=== PATIENT | male | born 1985 | race Caucasian/White ===

== ENCOUNTER 2023-09-26 00:27 | Emergency (ER) | payer SELFPAY ==
[2023-09-26 00:28] VITALS: BP 128/60; PULSE 61; RESP 20; TEMP 36.4; O2SAT 100; BMI 22.4
--- NOTE | 2023-09-26 00:33 | ECG_ITS ---
[facility] Test Date: 2023-09-26 Pat Name: Harley Gonzalez Department: Room: Gender: Male Continuous Process Machine Operator: : 1985 Requested By: Ahmet Maza Order Number: [id number] Flores MD: Kristofer Saha M.D. Measurements Intervals [place] Rate: 65 P: 56 FL: 190 QRS: 61 QRSD: 114 T: 69 QT: 388 QTc: 406 Interpretive Statements SINUS RHYTHM POSSIBLE RIGHT VENTRICULAR CONDUCTION DELAY [RSR (QR) IN V1/V2] Compared to ECG 08/16/2017 13:18:27 ST (T wave) deviation no longer present Electronically Signed On 09-26-2023 10:06:48 GLUE JOINTER OPERATOR by Kristofer Saha M.D. [id number] f
--- NOTE | 2023-09-26 00:54 | XRR_ITS ---
PROCEDURE INFORMATION: Exam: XR Chest Exam date and time: 09/26/2023 1:07 AM Age: 37 years old Clinical indication: Chest wall pain; Additional info: Chest pain TECHNIQUE: Imaging protocol: Radiologic exam of the chest. Views: 2 views. COMPARISON: CR XR chest 1V [id number] 08/16/2017 1:24 PM FINDINGS: Lungs: Unremarkable. No consolidation. Pleural spaces: Unremarkable. No pleural effusion. No pneumothorax. Heart/Mediastinum: Unremarkable. No cardiomegaly. Bones/joints: Unremarkable. XR/XR chest 2V* [id number] IMPRESSION: No acute cardiopulmonary findings.
--- NOTE | 2023-09-26 00:58 | ED_ITS ---
Documented by User: PRINCE Donnelly 09/26/23 01:03 HPI - Chest Pain 2 General: Chief Complaint: Chest Pain Stated Complaint: CP Time Seen by Provider: 09/26/23 00:45 Source: patient Mode of arrival: ambulatory Limitations: no limitations History of Present Illness: Patient is a 37-year-old male with no documented past medical history who presents to the emergency department via EMS complaining of chest pain onset 2130 tonight. Patient states he was sitting in his recliner when he noted sudden onset of epigastric squeezing chest pain associated with some shortness of breath, nausea, lightheadedness, and palpitations. Patient denies any personal cardiac history, but states he does not have a primary care provider. He does note that he takes his blood pressure at home because of a family history of low blood pressure, and states that it has been running low recently. He also notes that he has been dealing with some upper respiratory symptoms recently. When asked about history of anxiety, he states that he knows he has anxiety but has not been treated for it. His pain is improved now, stating it is a 2/10 and was initially 9/10. He denies any history of stomach ulcers or chronic NSAID use. He states he is a former smoker. He reports no specific exacerbating or alleviating factors. He does comment that he has had the pain before. He denies any other symptoms at this time and has no history of heart attacks or strokes. MD complaint: chest pain Onset (ago): hour(s) Prior episodes: Yes Onset: during rest Pain location: epigastric Pain radiation: none Severity: mild Pain scale (0-10): 2 (Initially a 9) Quality: other (Squeezing) Relieving factors: nothing Exacerbating factors: nothing Associated symptoms: Reports dyspnea, nausea and palpitations; Deny abdominal pain, diaphoresis, fever(s) or vomiting Review of Systems 2 General: Reports: 10 or more systems reviewed and unremarkable except in HPI and below Const: Denies: fever(s), chills, fatigue or diaphoresis Eyes: Denies: change in vision ENMT: Denies: throat pain, ear or mastoid pain or nasal discharge Card: Reports: chest pain, palpitations and lightheadedness; Denies: swelling of feet/ankles Resp: Reports: dyspnea; Denies: productive cough or wheezing GI: Reports: nausea; Denies: abdominal pain, vomiting, diarrhea or constipation : Denies: flank pain, difficulty urinating, dysuria or urinary frequency Musc: Denies: neck pain, back pain or joint pain Skin/Breast: Denies: rash Neuro: Denies: headache(s), numbness in extremities or weakness in extremities Physical Exam 2 Const: COMMON NORMALS: no acute distress, patient oriented x3 and no limitations GENERAL APPEARANCE: cooperative, comfortable and well developed ORIENTATION/CONSCIOUSNESS: Yes awake, Yes oriented to person, Yes oriented to place and Yes oriented to time HENMT: COMMON NORMALS: normocephalic, atraumatic and hearing grossly normal bilaterally HEAD & SCALP: normocephalic and atraumatic Eye: COMMON NORMALS: Equal, round and reactive pupils present, EOMs intact bilaterally and conjunctivae normal CONJUNCTIVA: Yes conjunctivae normal P UPIL: Yes Equal, round and reactive pupils present Neck/C-Spine: COMMON NORMALS: full ROM, supple and no JVD Chest: COMMONS NORMALS: normal inspection of the chest OTHER: Chest nontender to palpation Resp: COMMON NORMALS: normal respiratory effort, No retractions, No use of accessory muscles and clear to auscultation bilaterally AUSCULTATION: clear to auscultation bilaterally Cardio: COMMON NORMALS: no JVD, regular rate, regular rhythm, S1 normal heart sound present, S2 normal heart sound present, No gallops present (Cardio), No clicks present (Cardio), No murmurs present (Cardio), No rub (Cardio) and Peripheral pulses 2+ throughout RATE: regular rate RHYTHM: regular rhythm HEART SOUNDS: S1 normal heart sound present and S2 normal heart sound present PERIPHERAL PULSES: Peripheral pulses 2+ throughout OTHER: No peripheral edema GI: COMMON NORMALS: Normal to inspection, nondistended, normoactive bowel sounds present, Soft to palpation and non-tender AUSCULTATION: Yes normoactive bowel sounds PALPATION: Yes Soft to palpation RECTAL EXAM: Yes deferred Extremity: COMMON NORMALS: normal to inspection, full ROM and capillary refill normal Neuro: COMMON NORMALS: patient oriented x3, moves all extremities, no focal motor deficits and no sensory deficits noted SENSORIUM/ORIENTATION: Yes oriented to person, Yes oriented to place and Yes oriented to time Psych: COMMON NORMALS: mental status grossly normal and Normal thought process present THOUGHT PROCESS: Normal thought process present Skin: COMMON NORMALS: no rashes or lesions noted GENERAL SKIN EXAM: no rashes or lesions noted Course 2 Vital Signs: Vital signs: Vital Signs Temperature 97.6 F 09/26/23 03:32 Pulse Rate 77 09/26/23 03:32 Respiratory Rate 16 09/26/23 03:32 Blood Pressure 120/60 09/26/23 03:32 Pulse Oximetry 99 09/26/23 03:32 MDM - Chest Pain Lab Data 09/26/23 00:10 09/26/23 00:10 Radiology Impressions Chest X-Ray 09/26/23 00:54 IMPRESSION: No acute cardiopulmonary findings. Laboratory Results WBC 13.23 10^3/uL (3.29-11.43) H 09/26/23 00:10 RBC 4.84 10^6/uL (3.85-5.65) 09/26/23 00:10 Hgb 14.00 g/dL (11.27-16.99) 09/26/23 00:10 Hct 41.9 % (37-53) 09/26/23 00:10 MCV 86.6 fl (82-101) 09/26/23 00:10 MCH 28.9 pg (27-33) 09/26/23 00:10 MCHC 33.4 g/dL (30-55) 09/26/23 00:10 RDW 12.8 % (12.1-15.1) 09/26/23 00:10 Plt Count 287 10^3/cmm (157-399) 09/26/23 00:10 MPV 10.8 fL (7.4-10.4) H 09/26/23 00:10 Neut % (Auto) 82.0 % 09/26/23 00:10 Lymph % (Auto) 13.5 % 09/26/23 00:10 [place] % (Auto) 1.2 % 09/26/23 00:10 Eos % (Auto) 2.5 % 09/26/23 00:10 Baso % (Auto) 0.5 % 09/26/23 00:10 Neut # (Auto) 10.86 10^3/uL (1.8-7.7) H 09/26/23 00:10 Lymph # (Auto) 1.8 10^3/uL (0.8-4.8) 09/26/23 00:10 [place] # (Auto) 0.2 10^3/uL (0.2-0.9) 09/26/23 00:10 Eos # (Auto) 0.3 10^3/uL (0.0-0.8) 09/26/23 00:10 Baso # (Auto) 0.1 10^3/uL (0.0-0.1) 09/26/23 00:10 Nucleated RBC % (auto) 0 % 09/26/23 00:10 Nucleated RBCs # 0.0 /100WBC 09/26/23 00:10 Sodium 137 mmol/L (136-145) 09/26/23 00:10 Potassium 3.3 mmol/L (3.5-5.1) L 09/26/23 00:10 Chloride 97 mmol/L (98-107) L 09/26/23 00:10 Carbon Dioxide 24 mmol/L (22-29) 09/26/23 00:10 Anion Gap 19.3 (5-19) H 09/26/23 00:10 BUN 20 mg/dL (6-20) 09/26/23 00:10 Creatinine 1.2 mg/dL (0.7-1.2) 09/26/23 00:10 GFR Calculation 68.9 mL/min (90-130) L 09/26/23 00:10 Glucose 112 mg/dL (65-115) 09/26/23 00:10 Calculated Osmolality 287 mOsm/kg (285-295) 09/26/23 00:10 Calcium 8.6 mg/dL (8.5-10.5) 09/26/23 00:10 Total Bilirubin 0.5 mg/dL (0.15-1.2) 09/26/23 00:10 AST 258 U/L (0-40) H 09/26/23 00:10 ALT 72 U/L (0-41) H 09/26/23 00:10 Alkaline Phosphatase 113 U/L (40-130) 09/26/23 00:10 Troponin T Baseline < 6 ng/L (0-15) 09/26/23 00:10 Troponin T 120 Minute 6.20 ng/L (0-15) 09/26/23 02:05 Delta Troponin T 0.75919 ABS# (0-10) 09/26/23 02:05 Total Protein 6.6 g/dL (6.6-8.7) 09/26/23 00:10 Albumin 4.0 g/dL (3.5-5.2) 09/26/23 00:10 Globulin 2.6 g/dL (1.3-4.6) 09/26/23 00:10 Lipase 26 U/L (13-60) 09/26/23 00:10 Urine Color Dark yellow (Yellow) 09/26/23 01:25 Urine Appearance Clear (CLEAR) 09/26/23 01:25 Urine pH 5 (5-7) 09/26/23 01:25 Ur Specific [place] 1.020 (1.005-1.030) 09/26/23 01:25 Urine Protein Neg (Negative) 09/26/23 01:25 Urine Glucose (UA) Norm (Normal) 09/26/23 01:25 Urine Ketones Negative (Negative) 09/26/23 01:25 Urine Blood Neg (Negative) 09/26/23 01:25 Urine Nitrate Negative (Negative) 09/26/23 01:25 Urine Bilirubin 1+ (Negative) H 09/26/23 01:25 Urine Urobilinogen 4 mg/dL (Negative) H 09/26/23 01:25 Ur Leukocyte Esterase Negative (Negative) 09/26/23 01:25 Discharge Plan Discharge Patient Disposition: Home Clinical Impression: Atypical chest pain, Elevated liver enzymes Condition: Stable Discharge Orders: Discharge ED (Routine); Ordered 09/26/23 Ordered By: Wild Stroud Patient Instructions: Chest Pain (ED) Activity Restrictions/Additional Instructions: Your cardiac workup came back normal. This is suggestive of noncardiac chest pain. However your liver enzymes come back elevated. This requires further workup. Please follow-up with your family practice physician to have your labs redrawn for further evaluation and treatment. Coding Level of Care Code ED Underground Bolting Machine Operator for Chg Fwd Documented by User: Wild Stroud DO 09/26/23 05:12 HPI - Chest Pain 2 General: Chief Complaint: Chest Pain Stated Complaint: CP Time Seen by Provider: 09/26/23 00:45 Course 2 Vital Signs: Vital signs: Vital Signs Temperature 97.6 F 09/26/23 03:32 Pulse Rate 77 09/26/23 03:32 Respiratory Rate 16 09/26/23 03:32 Blood Pressure 120/60 09/26/23 03:32 Pulse Oximetry 99 09/26/23 03:32 MDM - Chest Pain Medical Decision Making Jean transferred over to [place] at shift change. Labs was reviewed reviewed as well as chest x-ray and EKGs all of which was essentially unremarkable except mildly elevated liver enzymes with AST of 258 and an ALT T of 72 his ALT the patient's chest pain is noncardiac in nature. Patient will be referred back to his PCP for further evaluation and treatment Lab Data 09/26/23 00:10 09/26/23 00:10 Radiology Impressions Chest X-Ray 09/26/23 00:54 IMPRESSION: No acute cardiopulmonary findings. Laboratory Results WBC 13.23 10^3/uL (3.29-11.43) H 09/26/23 00:10 RBC 4.84 10^6/uL (3.85-5.65) 09/26/23 00:10 Hgb 14.00 g/dL (11.27-16.99) 09/26/23 00:10 Hct 41.9 % (37-53) 09/26/23 00:10 MCV 86.6 fl (82-101) 09/26/23 00:10 MCH 28.9 pg (27-33) 09/26/23 00:10 MCHC 33.4 g/dL (30-55) 09/26/23 00:10 RDW 12.8 % (12.1-15.1) 09/26/23 00:10 Plt Count 287 10^3/cmm (157-399) 09/26/23 00:10 MPV 10.8 fL (7.4-10.4) H 09/26/23 00:10 Neut % (Auto) 82.0 % 09/26/23 00:10 Lymph % (Auto) 13.5 % 09/26/23 00:10 [place] % (Auto) 1.2 % 09/26/23 00:10 Eos % (Auto) 2.5 % 09/26/23 00:10 Baso % (Auto) 0.5 % 09/26/23 00:10 Neut # (Auto) 10.86 10^3/uL (1.8-7.7) H 09/26/23 00:10 Lymph # (Auto) 1.8 10^3/uL (0.8-4.8) 09/26/23 00:10 [place] # (Auto) 0.2 10^3/uL (0.2-0.9) 09/26/23 00:10 Eos # (Auto) 0.3 10^3/uL (0.0-0.8) 09/26/23 00:10 Baso # (Auto) 0.1 10^3/uL (0.0-0.1) 09/26/23 00:10 Nucleated RBC % (auto) 0 % 09/26/23 00:10 Nucleated RBCs # 0.0 /100WBC 09/26/23 00:10 Sodium 137 mmol/L (136-145) 09/26/23 00:10 Potassium 3.3 mmol/L (3.5-5.1) L 09/26/23 00:10 Chloride 97 mmol/L (98-107) L 09/26/23 00:10 Carbon Dioxide 24 mmol/L (22-29) 09/26/23 00:10 Anion Gap 19.3 (5-19) H 09/26/23 00:10 BUN 20 mg/dL (6-20) 09/26/23 00:10 Creatinine 1.2 mg/dL (0.7-1.2) 09/26/23 00:10 GFR Calculation 68.9 mL/min (90-130) L 09/26/23 00:10 Glucose 112 mg/dL (65-115) 09/26/23 00:10 Calculated Osmolality 287 mOsm/kg (285-295) 09/26/23 00:10 Calcium 8.6 mg/dL (8.5-10.5) 09/26/23 00:10 Total Bilirubin 0.5 mg/dL (0.15-1.2) 09/26/23 00:10 AST 258 U/L (0-40) H 09/26/23 00:10 ALT 72 U/L (0-41) H 09/26/23 00:10 Alkaline Phosphatase 113 U/L (40-130) 09/26/23 00:10 Troponin T Baseline < 6 ng/L (0-15) 09/26/23 00:10 Troponin T 120 Minute 6.20 ng/L (0-15) 09/26/23 02:05 Delta Troponin T 0.74508 ABS# (0-10) 09/26/23 02:05 Total Protein 6.6 g/dL (6.6-8.7) 09/26/23 00:10 Albumin 4.0 g/dL (3.5-5.2) 09/26/23 00:10 Globulin 2.6 g/dL (1.3-4.6) 09/26/23 00:10 Lipase 26 U/L (13-60) 09/26/23 00:10 Urine Color Dark yellow (Yellow) 09/26/23 01:25 Urine Appearance Clear (CLEAR) 09/26/23 01:25 Urine pH 5 (5-7) 09/26/23 01:25 Ur Specific [place] 1.020 (1.005-1.030) 09/26/23 01:25 Urine Protein Neg (Negative) 09/26/23 01:25 Urine Glucose (UA) Norm (Normal) 09/26/23 01:25 Urine Ketones Negative (Negative) 09/26/23 01:25 Urine Blood Neg (Negative) 09/26/23 01:25 Urine Nitrate Negative (Negative) 09/26/23 01:25 Urine Bilirubin 1+ (Negative) H 09/26/23 01:25 Urine Urobilinogen 4 mg/dL (Negative) H 09/26/23 01:25 Ur Leukocyte Esterase Negative (Negative) 09/26/23 01:25 All radiology interpretation(s) finalized by discharge Discharge Plan Discharge Patient Disposition: Home Clinical Impression: Atypical chest pain, Elevated liver enzymes Condition: Stable Discharge Orders: Discharge ED (Routine); Ordered 09/26/23 Ordered By: Wild Stroud Patient Instructions: Chest Pain (ED) Activity Restrictions/Additional Instructions: Your cardiac workup came back normal. This is suggestive of noncardiac chest pain. However your liver enzymes come back elevated. This requires further workup. Please follow-up with your family practice physician to have your labs redrawn for further evaluation and treatment. Coding Level of Care Code ED Underground Bolting Machine Operator for Katja Corbett
[2023-09-26 01:01] LABS: Basophils # 0.1 10^3/uL (0.0-0.1); Basophils % 0.5 %; Eosinophils # 0.3 10^3/uL (0.0-0.8); Eosinophils % 2.5 %; Hematocrit 41.9 % (37-53); Lymphocytes # 1.8 10^3/uL (0.8-4.8); Lymphocytes % 13.5 %; Mean Corpuscular HGB Conc 33.4 g/dL (30-55); Mean Corpuscular Hemoglobin 28.9 pg (27-33); Mean Corpuscular Volume 86.6 fl (82-101); Mean Platelet Volume 10.8 fL (7.4-10.4); Monocytes # 0.2 10^3/uL (0.2-0.9); Monocytes % 1.2 %; Neutrophils # 10.86 10^3/uL (1.8-7.7); Nucleated Red Blood Cells % 0 %; Platelet Count 287 10^3/cmm (157-399); Red Blood Count 4.84 10^6/uL (3.85-5.65); Red Cell Distribution Width 12.8 % (12.1-15.1); White Blood Count 13.23 10^3/uL (3.29-11.43)
[2023-09-26 01:14] LABS: Troponin(5th) Baseline < 6 ng/L (0-15)
[2023-09-26 01:15] LABS: Alanine Aminotransferase 72 U/L (0-41); Alkaline Phosphatase 113 U/L (40-130); Anion Gap 19.3 (5-19); Aspartate Amino Transferase 258 U/L (0-40); Blood Urea Nitrogen 20 mg/dL (6-20); Calcium 8.6 mg/dL (8.5-10.5); Carbon Dioxide 24 mmol/L (22-29); Chloride 97 mmol/L (98-107); Creatinine Clr Calc Pharmacy 95.7449; Globulin 2.6 g/dL (1.3-4.6); Glomerular Filtration Rate 68.9 mL/min (90-130); Glucose 112 mg/dL (65-115); Lipase 26 U/L (13-60); Osmolality Calculated 287 mOsm/kg (285-295); Potassium 3.3 mmol/L (3.5-5.1); Sodium 137 mmol/L (136-145); Total Bilirubin 0.5 mg/dL (0.15-1.2); Total Protein 6.6 g/dL (6.6-8.7)
[2023-09-26 01:28] VITALS: BP 120/60; PULSE 77; RESP 16; O2SAT 99
[2023-09-26 01:34] LABS: Add Urine Microscopic? NO; Charge for UA Resulting for Rev
[2023-09-26 01:38] LABS: Bilirubin Urine 1+ (Negative); Blood Urine Neg (Negative); Glucose Urine UA Norm (Normal); Ketones Urine Negative (Negative); Leukocyte Esterase Urine Negative (Negative); Nitrate Urine Negative (Negative); Protein Urine Neg (Negative); Urine Appearance Clear (CLEAR); Urine Color Dark Yellow (Yellow); Urobilinogen Urine 4 mg/dL (Negative); pH Urine 5 (5-7)
[2023-09-26 02:29] LABS: Troponin 5 2HR Delta 0.20001 ABS# (0-10)
[2023-09-26 03:32] VITALS: BP 120/60; PULSE 77; RESP 16; TEMP 36.4; O2SAT 99
== END 2023-09-26 03:35 | disposition home or self-care (01) ==
PROVIDERS: Emergency Provider Physician Assistant
DX: R07.89 Other chest pain (principal); R74.8 Abnormal levels of other serum enzymes
CPT/HCPCS: 36415; 71046; 80053; 81003; 83690; 84484; 85025; 93005; 99285